=== PATIENT | female | born 1965 | race Caucasian/White ===

== ENCOUNTER 2020-10-17 21:43 | Inpatient (IN) | payer BC ==
[~2020-10-17] VITALS: Ht 157.4 cm; Wt 64.0 kg
[2020-10-17 21:52] VITALS: BP 118/28
[2020-10-18] VITALS (7 sets, daily range): BP systolic 94–125; BP diastolic 40–66
[2020-10-18] MEDS ORDERED: LEVOTHYROXINE112 MCG PO (02:25)
[2020-10-18] MEDS ORDERED: CLARITIN10 MG PO (02:26)
[2020-10-18] MEDS ORDERED: MULTIVITAMINS1 EAC6 PO (02:26)
[2020-10-18 06:17] LABS: BASO # 0.1 10*3/uL (0.0-0.1); BASO % 0.7 % (0.0-1.0); EOS # 0.1 10*3/uL (0.0-0.4); EOS % 1.2 % (1.0-4.0); HEMATOCRIT 38.4 % (37.0-47.0); LYMPH # 1.3 10*3/uL (1.3-4.4); LYMPH % 16.9 % (27.0-41.0); MEAN CELL VOLUME 89.7 fl (81.0-99.0); MEAN CORPUSCULAR HGB 29.7 pg (27.0-31.0); MEAN CORPUSCULAR HGB CONC 33.1 g/dl (33.0-37.0); MEAN PLATELET VOLUME 10.4 fl (9.6-12.3); MONO # 0.4 10*3/uL (0.1-1.0); MONO % 5.5 % (3.0-9.0); NEUT # 5.7 10*3/uL (2.3-7.9); NEUT % 75.6 % (47.0-73.0); PLATELET COUNT AUTOMATED 204 10*3/uL (130-400); RED BLOOD COUNT 4.28 10*6/uL (4.10-5.10); RED CELL DISTRI WIDTH 12.1 % (0-14.5); WHITE BLOOD COUNT 7.5 10*3/uL (4.8-10.8)
[2020-10-18 06:31] LABS: CHLORIDE 107 mmol/L (98-107); SODIUM 138 mmol/L (136-145)
[2020-10-18 06:38] LABS: ALBUMIN 3.4 gm/dl (3.1-4.5); ALKALINE PHOSPHATASE 81 U/L (45-117); BUN 19 mg/dl (7-24); CREATININE 0.78 mg/dL (0.55-1.02); SGOT/AST 34 IU/L (3-35); SGPT/ALT 46 U/L (12-78)
[2020-10-19] VITALS: BP 108/57
[2020-10-19 08:00] VITALS: BP 128/58
[2020-10-19] MEDS ORDERED: Motrin,Rufen800 MG PO (08:32)
[2020-10-19] MEDS ORDERED: DICLOFENAC SOD100 G1 T (08:32)
== END 2020-10-19 12:41 | disposition home or self-care (01) | DRG 605 ==
LOC: ED 21:43 → 5E 23:25 → EDHOLD 23:25 → 5E 10-18 01:38
PROVIDERS: ADMIT Internal Medicine; ATTEND Internal Medicine
DX: S70.01XA Contusion of right hip, initial encounter (principal); W00.1XXA Fall from stairs and steps due to ice and snow, initial encounter; E03.9 Hypothyroidism, unspecified; Y93.29 Activity, other involving ice and snow; Y92.89 Other specified places as the place of occurrence of the external cause; Y99.8 Other external cause status; Z79.899 Other long term (current) drug therapy; M54.5 Low back pain

== ENCOUNTER → 2020-11-09 | Outpatient (CLI) | payer BC ==
[~2020-11-09] MED LIST: CLARITIN10 MG PO; DICLOFENAC SOD100 G1 T; LEVOTHYROXINE112 MCG PO; MULTIVITAMINS1 EAC6 PO; Motrin,Rufen800 MG PO
== END | disposition home or self-care (01) ==
LOC: RAD 08:34
PROVIDERS: ATTEND Orthopaedic Surgery
DX: M81.0 Age-related osteoporosis without current pathological fracture (principal); M85.88 Other specified disorders of bone density and structure, other site

== ENCOUNTER → 2021-07-06 | Day surgery (SDC) | payer BC ==
[2021-07-03 14:34] LABS: BASO # 0.1 10*3/uL (0.0-0.1); BASO % 0.7 % (0.0-1.0); EOS # 0.1 10*3/uL (0.0-0.4); EOS % 1.8 % (1.0-4.0); HEMATOCRIT 41.5 % (37.0-47.0); LYMPH # 1.8 10*3/uL (1.3-4.4); LYMPH % 24.8 % (27.0-41.0); MEAN CELL VOLUME 90.2 fl (81.0-99.0); MEAN CORPUSCULAR HGB 30.7 pg (27.0-31.0); MEAN PLATELET VOLUME 10.2 fl (9.6-12.3); MONO # 0.4 10*3/uL (0.1-1.0); MONO % 5.8 % (3.0-9.0); NEUT # 4.7 10*3/uL (2.3-7.9); NEUT % 66.6 % (47.0-73.0); PLATELET COUNT AUTOMATED 217 10*3/uL (130-400); RED CELL DISTRI WIDTH 11.8 % (0-14.5); WHITE BLOOD COUNT 7.1 10*3/uL (4.8-10.8)
[2021-07-03 14:48] LABS: BUN 23 mg/dl (7-24); CHLORIDE 104 mmol/L (98-107); CREATININE 0.93 mg/dL (0.55-1.02); POTASSIUM 3.5 mmol/L (3.5-5.1); SODIUM 139 mmol/L (136-145)
[~2021-07-06] VITALS: Ht 157.4 cm; Wt 60.8 kg
[~2021-07-06] MED LIST changes: +OYSTER SHELL C1 EAC3 PO
[2021-07-06 08:02] VITALS: BP 123/68
[2021-07-06 10:17] VITALS: BP 128/66
[2021-07-06 10:32] VITALS: BP 130/66
[2021-07-06 10:47] VITALS: BP 131/64
== END | disposition home or self-care (01) ==
LOC: SDC 07-03 14:00
PROVIDERS: ATTEND Orthopaedic Surgery
DX: S52.301A Unspecified fracture of shaft of right radius, initial encounter for closed fracture (principal); E11.9 Type 2 diabetes mellitus without complications; E03.9 Hypothyroidism, unspecified; F32.9 Major depressive disorder, single episode, unspecified; Z90.49 Acquired absence of other specified parts of digestive tract; X58.XXXA Exposure to other specified factors, initial encounter; Y93.89 Activity, other specified; Y92.89 Other specified places as the place of occurrence of the external cause; Y99.8 Other external cause status; M80.031A Age-related osteoporosis with current pathological fracture, right forearm, initial encounter for fracture; Z20.822 Contact with and (suspected) exposure to COVID-19

== ENCOUNTER → 2021-07-21 | Outpatient (CLI) | payer BC | END | disposition home or self-care (01) | LOC: ORTHO 01:57 | PROVIDERS: ATTEND Orthopaedic Surgery | DX: S52.324D Nondisplaced transverse fracture of shaft of right radius, subsequent encounter for closed fracture with routine healing (principal); X58.XXXD Exposure to other specified factors, subsequent encounter ==

== ENCOUNTER → 2021-08-18 | Outpatient (CLI) | payer BC | END | disposition home or self-care (01) | LOC: ORTHO 04:24 | PROVIDERS: ATTEND Orthopaedic Surgery | DX: S52.324D Nondisplaced transverse fracture of shaft of right radius, subsequent encounter for closed fracture with routine healing (principal); X58.XXXD Exposure to other specified factors, subsequent encounter ==

== ENCOUNTER → 2021-10-18 | Outpatient (CLI) | payer BC | END | disposition home or self-care (01) | LOC: ORTHO 00:22 | PROVIDERS: ATTEND Orthopaedic Surgery | DX: S52.324D Nondisplaced transverse fracture of shaft of right radius, subsequent encounter for closed fracture with routine healing (principal); X58.XXXD Exposure to other specified factors, subsequent encounter ==

== ENCOUNTER → 2022-01-26 | Outpatient (CLI) | payer BC | END | disposition home or self-care (01) | LOC: MRI 12:38 | PROVIDERS: ATTEND Internal Medicine | DX: M67.813 Other specified disorders of tendon, right shoulder (principal); M75.51 Bursitis of right shoulder ==